=== PATIENT | female | born 1940 | race African-American/Black ===

== ENCOUNTER 2021-03-27 14:29 | Inpatient (IN) | payer OTHER ==
--- OUTSIDE RECORDS SUMMARY | 2021-03-27 14:31 | XMS REPORT | Continuity of Care Document ---
:1940 Author Organization [facility] t Address [address] [place] [address] Care Team Providers Name Role Phone OJ Attending Clinician Unavailable Problems This patient has no known problems. Allergies, Adverse Reactions, Alerts Allergy Allergy Status Severity Reaction(s) Onset Inactive Treating Comm ents Source Name Type Date Date Clinician Azithrom Adverse Active Info Not [facility] Medications Ordered Filled Start Stop Current Ordering Indication Dosage Frequency Signature Comments Components Source Medication Medication Date Date Medication? Clinician (SIG) Name Name Kiki Swanson Yes [place] [address] [facility] ne ne 04-16 applicatio [facility] Aceton[facility] Ac[facility]ide [facility]: n to Mem [facility]ria 00 affected l area Outpat[facility] ent Clinics Ondansetron Ondansetron Yes Na [place] TAKE [address] [facility] HCl HCl TABLET BY [facility] EVERY 8 l HOURS Outpati NEEDED FOR ent NAUSEA AND Clinics VOMITING Fluticasone Fluticasone Yes [place] [address] [facility] Propionate Propionate in each [facility] Nexium Nexium Yes [place] [address] [facility] Pravastatin Pravastatin Yes [place] TAKE [address] [facility] Sodium Sodium TABLET BY [facility] EVERY DAY l [facility] Clinics Gleevec Gleevec Yes [place] [address] [facility] and a [facility] large l glass of Outpati water ent Clinics Esomeprazol Esomeprazol Yes [place] TAKE ONE [facility] e Magnesium e Magnesium CAPSULE BY [facility] DAILY l [facility] Pravastatin Pravastatin Yes [place] TAKE [address] [facility] Sodium Sodium TABLET BY [facility] EVERY DAY l [facility] Esomeprazol Esomeprazol Yes [place] TAKE ONE [facility] e Magnesium e Magnesium CAPSULE BY [facility] EVERY DAY l [facility] Loratadine Loratadine Yes Na [place] [address] [facility] Indapamide Indapamide Yes Na [place] TAKE [address] [facility] TABLET BY [facility] EVERY l MORNING [facility] Lisinopril Lisinopril Yes Na [place] [address] [facility] Lotrel Lotrel Yes Na [place] TAKE ONE [facility] CAPSULE BY [facility] EVERY DAY l [facility] Indapamide Indapamide Yes Na [place] TAKE [address] [facility] TABLET BY [facility] EVERY l MORNING [facility] Amlodipine Amlodipine Yes Na [place] TAKE [address] [facility] Besy-Benaze Besy-Benaze CAPSULE BY [facility] pril HCl pril HCl MOUTH Memori a EVERY DAY l [facility] Pravastatin Pravastatin Yes Na [place] TAKE [address] [facility] Sodium Sodium TABLET BY [facility] EVERY l EVENING [facility] Esomeprazol Esomeprazol Yes Na [place] TAKE [address] [facility] e Magnesium e Magnesium CAPSULE BY [facility] EVERY DAY l [facility] Procedures This patient has no known procedures. Encounters Start End Encounter Admission Attending Care Care Encounter Source Date/Time Date/Time Type Type Clinicians Facility Department ID 2021-03-25 2021-03-25 [facility] [id number] 2021-03-24 2021-03-24 [facility] [id number] [facility] 2021-03-23 2021-03-23 [facility] [id number] [facility] 2021-03-23 2021-03-23 ambulatory [facility] [id number] [facility] 2021-03-22 2021-03-22 ambulatory [facility] [id number] [facility] 2021-03-10 2021-03-10 ambulatory [facility] [id number] [facility] 2021-03-10 2021-03-10 ambulatory [facility] [id number] [facility] 2021-02-22 2021-02-22 ambulatory [facility] [id number] [facility] 2020-12-23 2020-12-23 Outpatient [facility] [id number] [facility] 2020-11-25 2020-11-25 Outpatient [facility] [id number] [facility] 2020-11-22 2020-11-22 Out[facility] [id number] [facility] 2020-10-04 2020-10-04 [id number] [place] [facility] 00:00:[address] JJ [address] 2020-10-04 2020-10-04 [facility] [id number] [place] 00:00:00 00:00:00 JJ [address] 2020-09-09 2020-09-09 Outpatient [facility] [id number] [facility] 2020-08-06 2020-08-06 Outpatient [facility] [id number] [facility] 2020-06-18 2020-06-18 Outpatient [facility] [id number] [facility] 2020-05-10 2020-05-10 Outpatient [facility] [id number] [facility] 2020-04-20 2020-04-20 Outpatient TEEDCNadir, [facility] [id number] [place] 00:00:00 00:00:00 MAEN [address] 2020-04-20 2020-04-20 Outpatient TEEDCNadir, [facility] [id number] [place] 00:00:00 00:00:00 MAEN [address] 2020-03-25 2020-03-25 Outpatient TEEDCM, [facility] [id number] [place] 00:00:00 00:00:00 MAEN [address] 2019-12-11 2019-12-11 Outpatient [facility] [id number] [facility] 2019-10-14 2019-10-14 Outpatient OJ, [facility] [id number] [place] 00:00:00 00:00:00 MAEN [address] 2019-10-07 2019-10-07 [facility] [id number] 11:00:00 11:00:00 [place] [address] [facility] - Drive [facility] Medicine Outpati ent Clinics 2019-04-23 2019-04-23 [facility] [id number] 08:00:00 08:00:00 [place] [address] Luke s - Drive [facility] Family Medicine l Medicine Outpati ent Clinics 2019-04-21 2019-04-21 [facility] [id number] 08:39:00 08:39:00 [place] [address] Luke s - Drive [facility] Medicine l Medicine Outpati ent Clinics 2019-04-17 2019-04-17 Outpatient OJ Lia [facility] [id number] [place] 00:00:00 00:00:00 [address] [facility] 2019-04-16 2019-04-16 [facility] [id number] 08:15:00 08:15:00 t [employer] [facility] Medicine Outpati ent Clinics 2019-04-14 2019-04-14 [facility] [id number] 14:29:00 14:29:00 t [employer] [facility] Medicine Outpati ent Clinics 2019-04-08 2019-04-08 [facility] [id number] [address] 11:00:00 11:00:00 t [employer] [facility] Medicine Outpati ent Clinics 2019-02-28 2019-02-28 [facility] [id number] 09:00:00 09:00:00 t [employer] [facility] Medicine Outpati ent Clinics 2018-11-15 2018-11-15 [facility] [id number] 10[facility]51:00 10:51:00 t [employer] [facility] Medicine Outpati ent Clinics 2018-08-27 2018-08-27 [facility] [id number] 13:40:00 13:40:00 t [employer] [facility] Medicine Outpati ent Clinics 2018-03-06 2018-03-06 [facility] [id number] [facility] 11:53:00 11:53:00 t [employer] [facility] Medicine Outpati ent Clinics Results This patient has no known results.
[2021-03-27 15:14] LABS: Absolute Lymphocytes (CBC) 0.5 K/uL (0.7-4.9); Hematocrit 12.5 % (36.0-45.0); Lymphocytes % 10.6 % (15.3-44.8); MPV 7.1 fL (7.6-11.3); RBC Red Blood Cell Count 1.42 M/uL (3.86-4.86)
[2021-03-27 15:21] LABS: Protime INR 1.02
[2021-03-27 15:31] LABS: Albumin 2.7 g/dL (3.4-5.0); Bilirubin Direct 0.1 mg/dL (0-0.2); Bilirubin Total 0.2 mg/dL (0.2-1.0); CKMB Creatine Kinase MB 2.9 ng/mL (1.0-3.6); Magnesium 1.9 mg/dL (1.8-2.4); Potassium 3.4 mmol/L (3.5-5.1); Protein, Total 5.6 g/dL (6.4-8.2); Troponin (Emerg Dept Use Only) 0.03 ng/mL (0.0-0.045)
--- NOTE | 2021-03-27 15:55 | RAD REPORT ---
EXAM DESCRIPTION: CT - Head Brain Wo Cont - 03/27/2021 3:41 pm CLINICAL HISTORY: Syncope COMPARISON: None TECHNIQUE: Computed axial tomography of the head was obtained. IV contrast was not requested. All CT scans are performed using dose optimization technique as appropriate and may include automated exposure control or mA/KV adjustment according to patient size. FINDINGS: An intracranial bleed is not seen . The ventricles are normal in caliber. No extra-axial fluid collection is noted. A small bony/ calcific densities extend off of the medial aspect of the left temporal bone which may represent osteomas. Moderate sphenoid sinusitis IMPRESSION: No acute intracranial abnormality is seen. If patient's symptoms persist MRI of the bra in would be recommended.
--- NOTE | 2021-03-27 16:06 | RAD REPORT ---
EXAM DESCRIPTION: CTSpine Lumbar Wo Con03/27/2021 3:56 pm CLINICAL HISTORY: Back injury with back pain status post fall COMPARISON: None TECHNIQUE: Computed axial tomography lumbar spine was obtained with coronal and sagittal reconstruct ion. All CT scans are performed using dose optimization technique as appropriate and may include automated exposure control or mA/KV adjustment according to patient size. FINDINGS: No fracture is seen. No dislocation is noted. No high-grade central/foraminal stenosis visualized. Images of the lower chest demonstrate calcified lymph nodes within posterior mediastinum. 1 centimeter chronic sclerosis right sacrum is benign IMPRESSION: A lumbar fracture is not visualized If patient continues have symptoms to suggest spinal canal pathology MRI would be recommended
--- NOTE | 2021-03-27 16:11 | RAD REPORT ---
EXAM DESCRIPTION: Mikael Single View03/27/2021 3:57 pm CLINICAL HISTORY: Congestion COMPARISON: 2008 FINDINGS: Calcified lung granulomas, calcified hilar and calcified mediastinal lymph nodes. Calcified pleural plaques are present. Lungs appear clear of acute infiltrate. Heart is normal size
--- NOTE | 2021-03-27 16:38 | RAD REPORT ---
EXAM DESCRIPTION: RAD - Knee Right 3 View - 03/27/2021 3:57 pm CLINICAL HISTORY: Right knee pain status post injury FINDINGS: The exam is somewhat limited as the patient could not extend her knee. Cortical irregularity involves the lateral tibial plateau. Most likely this is not significant as the re does not appear to be a significant joint effusion. Bones are osteoporotic. No dislocation. If patient continues have symptoms to suggest an occult fracture, ligamentous or meniscal injury MRI would be recommended
[2021-03-27] MEDS ORDERED: PANTOPRAZOLE 40 MG INJ ONE (17:35)
[2021-03-27] MEDS ORDERED: NA CHLORIDE 0.9% 250 ML ONE ×3 (17:35→21:28)
[2021-03-27] MEDS ORDERED: NS 0.9% VIAL 10 ML ONE (17:35)
[2021-03-27 18:35] LABS: Urine Appearance CLOUDY (Clear); Urine Bilirubin NEGATIVE (Negative); Urine Blood NEGATIVE (Negative); Urine Color YELLOW (Yellow); Urine Glucose NEGATIVE (Negative); Urine Protein NEGATIVE (Negative)
[2021-03-27] MEDS ORDERED: ACETAMINOPHEN 500 MG TAB ONE (18:42)
[2021-03-27 18:46] LABS: Urine Bacteria <20 /HPF (<20); Urine RBC <5 /HPF (NONE SEEN)
[2021-03-27 18:47] LABS: Urine Amorphous Sediment 2+ /HPF (NONE SEEN)
--- NOTE | 2021-03-27 18:53 | ER ---
Nurse's Notes [facility] Naima Name: Jess Herrera Age: 80 yrs Sex: Female : 1940 Arrival Date: 03/27/2021 Time: 14:30 Bed 6 Private MD: Diagnosis: GI Bleed/ Gastrointestinal hemorrhage, unspecified;Anemia, unspecified;SARS-associated coronavirus as the cause of diseases classified elsewhere;Acute kidney failure, unspecified Presentation: 03/27 14:42 Chief complaint: Patient states: Dizziness and Fall: Pt reports dizziness upon standing eo2 while at home today, fell on her buttocks, reports b/l knee pain, and pain to the middle of her buttocks. Pt denies LOC, denies head injury. Coronavirus screen: Vaccine status: Patient reports receiving the 2nd dose of the covid vaccine. Client denies travel out of the [place] in the last 14 days. At this time, the client does not indicate any symptoms associated with coronavirus-19. Ebola Screen: Patient negative for fever greater than or equal to 101.5 degrees Fahrenheit, and additional compatible Ebola Virus Disease symptoms Patient denies exposure to infectious person. Patient denies travel to an Ebola-affected area in the 21 days before illness onset. No symptoms or risks identified at this time. Initial Sepsis Screen: Does the patient meet any 2 criteria? No. Patient's initial sepsis screen is negative. Does the patient have a suspected source of infection? No. Patient's initial sepsis screen is negative. Risk Assessment: Do you want to hurt yourself or someone else? Patient reports no desire to harm self or others. Onset of symptoms is unknown. 14:42 Method Of Arrival: EMS: [facility] eo2 14:42 Acuity: MARK 2 eo2 Triage Assessment: 14:46 General: Appears in no apparent distress. Behavior is calm, cooperative. Pain: eo2 Complains of pain in buttocks-middle. Historical: - Allergies: 14:46 No Known Allergies; eo2 - Home Meds: 17:27 indapamide 1.25 mg oral tab [Active]; lisinopril 40 mg Oral tab [Active]; eo2 amlodipine-benazepril 10-20 mg oral cap [Active]; pravastatin 40 mg oral tab [Active]; imatinib 400 mg oral tab [Active]; ondansetron 8 mg oral TbDi [Active]; esomeprazole magnesium 20 mg oral TbEC [Active]; promethazine 25 mg Oral tab [Active]; - PMHx: 14:46 Hypertensive disorder; GI Tumor; GERD; High cholesterol; eo2 - Immunization history:: Adult Immunizations up to date, Client reports receiving the 2nd dose of the Covid vaccine. - Social history:: Smoking status: Patient denies any tobacco usage or history of. Patient/guardian denies using alcohol, street drugs, The patient lives with family. - Family history:: not pertinent. Screenin:04 Abuse screen: Denies threats or abuse. Denies injuries from another. Nutritional eo2 screening: No deficits noted. Tuberculosis screening: No symptoms or risk factors identified. Fall Risk Fall in past 12 months (25 points). Ambulatory Aid- None/Bed Rest/Nurse Assist (0 pts). Assessment: 03:15 Reassessment: blood transfuion started. mk 15:01 General: Appears in no apparent distress. uncomfortable, Behavior is calm, cooperative. eo2 Pain: Complains of pain in mid buttocks and b/l knees. Neuro: Level of Consciousness is awake, alert, obeys commands, Oriented to person, place, time, situation, Reports dizziness, Denies headache. Cardiovascular: Denies chest pain, shortness of breath, Heart tones S1 S2 Capillary refill < 3 seconds. Respiratory: Reports cough that is chronic Breath sounds are clear bilaterally. Denies shortness of breath. GI: Bowel sounds present X 4 quads. Reports nausea. Musculoskeletal: Circulation, motion, and sensation intact. Capillary refill < 3 seconds, Range of motion: limited in RLE Reports pain in b/l knees, and buttocks, denies hip pain. 17:12 Reassessment: Straight cath to obtain urine. eo2 17:17 Reassessment: two more attempts by this RN to obtain a second PIV, unsuccessful, eo2 another RN to attempt. 17:50 Reassessment: pt's daughter- Karen Smith ([phone]), states she's POA, wants eo2 provider to call her and wants to know when pt gets transferred, pt agrees to info being shared with daughter, Dr. Galeana made aware. 17:53 Reassessment: Pt moaning in pain, received order for tylenol 1000mg PO once from Dr. alfonzo Galeana. 19:00 Reassessment: 1st unit PRBC started now. Respiratory: Airway is patent Respiratory ss effort is even, unlabored, Respiratory pattern is regular, symmetrical. Derm: Skin is pink, warm \\T\\ dry. normal. 19:20 General: Appears uncomfortable. Pain: Denies pain. Neuro: Level of Consciousness is mk awake, alert, obeys commands, Oriented to person, place, time, situation. Cardiovascular: Denies chest pain, shortness of breath, Heart tones S1 S2 Capillary refill < 3 seconds Clubbing of nail beds is absent JVD is absent Patient's skin is warm and dry. Rhythm is regular. Respiratory: Reports shortness of breath on exertion cough that is Airway is patent Trachea midline Respiratory effort is even, unlabored, Respiratory pattern is regular, symmetrical, Breath sounds are clear. GI: Abdomen is flat, non-distended, Bowel sounds present X 4 quads. : Urine is clear. Derm: Skin is intact, is healthy with good turgor, Skin is pale. Musculoskeletal: Circulation, motion, and sensation intact. Capillary refill < 3 seconds, Range of motion: intact in all extremities. 20:05 Reassessment: Patient appears in no apparent distress at this time. No changes from previously documented assessment. Patient and/or family updated on plan of care and expected duration. Pain level reassessed. Patient states symptoms have improved. 21:05 Reassessment: No changes from previously documented assessment. Patient and/or family mk updated on plan of care and expected duration. Pain level reassessed. Patient states symptoms have improved. 21:35 Reassessment: blood transfusion started . 22:05 Reassessment: No changes from previously documented assessment. Patient and/or family mk updated on plan of care and expected duration. Pain level reassessed. Patient states symptoms have improved. 23:05 Reassessment: Patient appears in no apparent distress at this time. No changes from mk previously documented assessment. Patient and/or family updated on plan of care and expected duration. Pain level reassessed. Patient states symptoms have improved. 03/28 00:01 Reassessment: Patient appears in no apparent distress at this time. No changes from previously documented assessment. Patient and/or family updated on plan of care and expected duration. Pain level reassessed. 00:31 Reassessment: blood transfusion started. 01:01 Reassessment: Patient appears in no apparent distress at this time. No changes from mk previously documented assessment. Patient and/or family updated on plan of care and expected duration. Pain level reassessed. Patient states symptoms have improved. 02:01 Reassessment: Patient appears in no apparent distress at this time. No changes from mk previously documented assessment. Patient and/or family updated on plan of care and expected duration. Pain level reassessed. 03:01 Reassessment: Patient appears in no apparent distress at this time. No changes from mk previously documented assessment. Patient and/or family updated on plan of care and expected duration. Pain level reassessed. 04:00 Reassessment: Patient appears in no apparent distress at this time. No changes from mk previously documented assessment. Patient and/or family updated on plan of care and expected duration. Pain level reassessed. Patient states symptoms have improved. 04:04 Reassessment:. 05:00 Reassessment: Patient appears in no apparent distress at this time. No changes from mk previously documented assessment. Patient and/or family updated on plan of care and expected duration. Pain level reassessed. 06:00 Reassessment: Patient appears in no apparent distress at this time. No changes from mk previously documented assessment. Patient and/or family updated on plan of care and expected duration. Pain level reassessed. 08:18 Reassessment: Patient appears in no apparent distress at this time. Patient and/or vg1 family updated on plan of care and expected duration. Pain level reassessed. Patient is alert, oriented x 3, equal unlabored respirations, skin warm/dry/pink. 09:09 Reassessment: Patient appears in no apparent distress at this time. No changes from vg1 previously documented assessment. Patient and/or family updated on plan of care and expected duration. Pain level reassessed. Patient is alert, oriented x 3, equal unlabored respirations, skin warm/dry/pink. Patient denies pain at this time. 10:30 Reassessment: Patient appears in no apparent distress at this time. No changes from vg1 previously documented assessment. 11:47 Reassessment: Patient appears in no apparent distress at this time. No changes from vg1 previously documented assessment. Patient and/or family updated on plan of care and expected duration. Pain level reassessed. Patient is alert, oriented x 3, equal unlabored respirations, skin warm/dry/pink. Patient denies pain at this time. 13:00 Reassessment: Patient appears in no apparent distress at this time. Patient and/or vg1 family updated on plan of care and expected duration. Pain level reassessed. Patient is alert, oriented x 3, equal unlabored respirations, skin warm/dry/pink. 14:00 Reassessment: Patient appears in no apparent distress at this time. No changes from vg1 previously documented assessment. Patient and/or family updated on plan of care and expected duration. Pain level reassessed. Patient is alert, oriented x 3, equal unlabored respirations, skin warm/dry/pink. 15:09 Reassessment: Patient appears in no apparent distress at this time. No changes from vg1 previously documented assessment. Patient and/or family updated on plan of care and expected duration. Pain level reassessed. Patient is alert, oriented x 3, equal unlabored respirations, skin warm/dry/pink. Vital Signs: 03/27 14:42 BP 112 / 46; Pulse 93; Resp 17; Temp 98.9; Pulse Ox 96% ; Weight 62.6 kg; Height 5 ft. eo2 1 in. (154.94 cm); Pain 7/10; 15:00 BP 108 / 45; Pulse 92; Resp 17; Pulse Ox 95% ; eo2 16:00 BP 106 / 44; Pulse 93; Resp 14; Pulse Ox 100% ; Pain 6/10; eo2 17:00 BP 115 / 45; Pulse 94; Resp 20; Pulse Ox 100% ; eo2 18:00 BP 124 / 52; Pulse 93; Resp 19; Pulse Ox 100% on R/A; eo2 18:38 BP 127 / 52 LA; Pulse 91; Resp 16; Temp 99.0(T); Pulse Ox 100% on R/A; eo2 19:08 BP 109 / 52; Pulse 90; Resp 17; Pulse Ox 100% on R/A; mk 20:08 BP 91 / 56; Pulse 91; Resp 18; Pulse Ox 98% on R/A; mk 21:10 BP 105 / 69; Pulse 81; Resp 18; Pulse Ox 100% on R/A; mk 22:05 BP 105 / 58; Pulse 84; Resp 18; Pulse Ox 98% on R/A; mk 23:05 BP 90 / 66; Pulse 84; Resp 18; Pulse Ox 98% on R/A; mk 03/28 00:01 BP 102 / 56; Pulse 81; Resp 18; Pulse Ox 100% on R/A; mk 01:01 BP 102 / 58; Pulse 78; Resp 18; Pulse Ox 100% on R/A; mk 02:01 BP 97 / 48; Pulse 78; Resp 18; Pulse Ox 100% on R/A; mk 03:15 BP 110 / 58; Pulse 77; Resp 17; Pulse Ox 100% on R/A; mk 04:00 BP 105 / 57; Pulse 71; Resp 18; Temp 97.1; Pulse Ox 97% on R/A; mk 05:00 BP 105 / 57; Pulse 71; Resp 16; Temp 97.4; Pulse Ox 97% on R/A; mk 06:00 BP 114 / 89; Pulse 77; Resp 18; Temp 97.4; Pulse Ox 98% on R/A; mk 08:17 BP 117 / 65; Pulse 85; Resp 21; Temp 97.9; Pulse Ox 99% ; vg1 09:00 BP 119 / 50; Pulse 85; Resp 24; Pulse Ox 96% on R/A; vg1 10:00 BP 118 / 54; Pulse 87; Resp 18; Pulse Ox 97% ; vg1 11:00 BP 108 / 58; Pulse 88; Resp 18; Pulse Ox 97% ; vg1 13:18 BP 109 / 50; Pulse 87; Resp 18; Pulse Ox 96% ; jd3 14:00 BP 104 / 58; Pulse 90; Resp 16; Pulse Ox 97% on R/A; vg1 15:00 BP 107 / 57; Pulse 92; Resp 22; Pulse Ox 99% ; vg1 03/27 14:42 Body Mass Index 26.07 (62.60 kg, 154.94 cm) eo2 Keshav Coma Score: 03/27 19:08 Eye Response: spontaneous(4). Verbal Response: oriented(5). Motor Response: obeys mk commands(6). Total: 15. 20:08 Eye Response: spontaneous(4). Verbal Response: oriented(5). Motor Response: obeys mk commands(6). Total: 15. 21:10 Eye Response: spontaneous(4). Verbal Response: oriented(5). Motor Response: obeys mk commands(6). Total: 15. 22:05 Eye Response: spontaneous(4). Verbal Response: oriented(5). Motor Response: obeys mk commands(6). Total: 15. 03/28 00:01 Eye Response: spontaneous(4). Verbal Response: oriented(5). Motor Response: obeys mk commands(6). Total: 15. 01:01 Eye Response: spontaneous(4). Verbal Response: oriented(5). Motor Response: obeys mk commands(6). Total: 15. 02:01 Eye Response: spontaneous(4). Verbal Response: oriented(5). Motor Response: obeys mk commands(6). Total: 15. 03:15 Eye Response: spontaneous(4). Verbal Response: oriented(5). Motor Response: obeys mk commands(6). Total: 15. 04:00 Eye Response: spontaneous(4). Verbal Response: oriented(5). Motor Response: obeys mk commands(6). Total: 15. 05:00 Eye Response: spontaneous(4). Verbal Response: oriented(5). Motor Response: obeys mk commands(6). Total: 15. 06:00 Eye Response: spontaneous(4). Verbal Response: oriented(5). Motor Response: obeys mk commands(6). Total: 15. ED Course: 03/27 14:30 Patient arrived in ED. am2 14:33 Jose Boswell MD is Attending Physician. ma2 14:42 Josefina Carballo RN is Primary Nurse. eo2 14:46 Triage completed. eo2 14:46 Arm band placed on. eo2 15:00 Basic Metabolic Panel Sent. eo2 15:00 CBC with Automated Diff Sent. eo2 15:00 Basic Metabolic Panel Sent. eo2 15:01 CBC with Diff Sent. eo2 15:41 CT Head Brain wo Cont In Process Unspecified. EDMS 15:56 CT Lumbar Spine Wo Con In Process Unspecified. EDMS 15:57 Knee Right 3 View XRAY In Process Unspecified. EDMS 15:57 Chest Single View XRAY In Process Unspecified. EDMS 16:08 Type and Screen Sent. ss 16:41 attempted to initiate a transfer with [facility] at the request of the patient/ per Marek petersen [facility] is at capacity and will have to decline the patient in transfer. 16:42 initiated a transfer with Emily from the [facility]. eb 17:08 T\\T\\S Sent. eo2 17:08 Type and Screen Sent. eo2 17:08 SARS-COV-2 RT PCR (Document "Date of Onset" if Symptomatic) Sent. eo2 17:10 per Emily/ Dr. Doran the hospitalist and Dr. Chan the GI concrete boom pump operator the patient eb requires and ICU bed with the current H\\T\\H. They suggest we transfuse the 4 units of blood recheck the blood in the A.M and then re initiate the transfer in the A.M/ patient is declined due to being at ICU capacity/. 17:30 Patient has correct armband on for positive identification. eo2 17:30 attempted to initiate a transfer with the [facility]/ Carlos Mckee all [facility] are on ICU saturation/ capacity. 17:30 No provider procedures requiring assistance completed. eo2 17:56 per Vonnie at the [facility] they will have to decline the eb patient in transfer at all campuses they are at ICU Saturation. 18:55 Inserted saline lock: 22 gauge in right antecubital area, using aseptic technique. ss 18:55 Inserted saline lock: 24 gauge in right antecubital area, using aseptic technique. ss ,using aseptic technique. Insertion by DAVID Velez. Protonix infusion switched to new IV site. 19:09 Primary Nurse role handed off by Josefina Carballo RN [facility] 19:15 Inserted saline lock: 22 gauge in right wrist, using aseptic technique. mk 19:24 Rosi Alcantar, BIPIN is Primary Nurse. mk 03/28 00:09 Attending Physician role handed off by Jose Boswell MD drew 00:09 Albino Mcneil MD is Attending Physician. drew 00:42 Hemoglobin Sent. tw5 04:07 called to re initiate transfer on patient. [facility], [facility], [facility] and [facility] [address] all on diversion. 07:28 Primary Nurse role handed off by Rosi Alcantar RN 07:30 Daina Broderick, RN is Primary Nurse. vg1 07:40 CT Abd/Pelvis - Without Contrast In Process Unspecified. EDMS 10:54 Mane Yu PA is PHCP. jr8 10:54 Dion Pascual MD is Hospitalizing Provider. jr8 14:28 pts daughter, . bd 20:06 Report given to BIPIN Thakur. vg1 Administered Medications: 03/27 15:21 Not Given (Physician Discretion): NS 0.9% 1000 ml IV at 1 bolus Per protocol; 1000 mL eo2 bolus 17:41 Drug: Pantoprazole 40 mg Route: IVP; Site: left antecubital; eo2 19:20 Follow up: Response: No adverse reaction ss 17:41 Drug: Pantoprazole 8 mg/hr Route: IV; Rate: 25 ml/hr; Site: left antecubital; eo2 18:47 Drug: Tylenol 1000 mg Route: PO; eo2 03/28 08:15 Drug: Zosyn (piperacillin-tazobactam) 2.25 grams Route: IVPB; Infused Over: 60 mins; vg1 Site: right wrist; 09:27 Follow up: IV Status: Completed infusion; IV Intake: 100ml vg1 Intake: 09:27 IV: 100ml; Total: 100ml. vg1 Outcome: 03/27 18:53 ER care complete, transfer ordered by . ma2 03/28 10:59 Decision to Hospitalize by Provider. jr8 03/29 18:12 Patient left the ED. jh6 Signatures: Dispatcher [employer] EDMS Gretel Comer Corey, MD MD cha Smirch, Shelby, RN RN Mane Yu PA PA jr8 Dorie Whalen amRosie Ramirez [facility] Jacky Liriano RN RN Jose Conway MD MD nvTing Nino Victoria RN RN 1 Misa Pinto [facility] Willa Meier [facility] Tracey Levin RN RN 6 Josefina Carballo RN RN eo2 Rosi Alcantar RN RN mk Corrections: (The following items were deleted from the chart) 03/27 15:00 14:42 Chief complaint: Patient states: FALL: Pt reports dizziness upon standing while eo2 at home today, fell on her buttocks, reports b/l knee pain, and pain to the middle of her buttocks. Pt denies LOC, denies head injury. eo2 17:12 15:01 Respiratory: Breath sounds are clear bilaterally. Denies shortness of breath eo2 eo2 19:23 19:00 Inserted saline lock: 22 gauge in right antecubital area, using aseptic ss technique. dh3 03/28 04:01 04:00 Reassessment: No changes from previously documented assessment. Patient and/or mk family updated on plan of care and expected duration. Pain level reassessed. Patient is alert, oriented x 3, equal unlabored respirations, skin warm/dry/pink. 04:03/27 20:05 Reassessment: No changes from previously documented assessment. Patient mk and/or family updated on plan of care and expected duration. Pain level reassessed. Patient is alert, oriented x 3, equal unlabored respirations, skin warm/dry/pink.
--- NOTE | 2021-03-27 18:54 | EDPHYS ---
Physician Documentation [facility] Name: [facility] Age: 80 yrs Sex: Female : 1940 Arrival Date: 03/27/2021 Time: 14:30 Bed 6 Private MD: DAVID Physician Albino Mcneil HPI: 03/27 14:46 This 80 yrs old Black Female presents to ER via EMS with complaints of Lightheadedness. ma2 14:46 Onset: The symptoms/episode began/occurred gradually, 1 day(s) ago. Associated signs ma2 and symptoms: Pertinent negatives: ataxia, combativeness, diaphoresis, head injury, , seizure, tingling. Severity of symptoms: At their worst the symptoms were mild in the emergency department the symptoms are unchanged. The patient has experienced similar episodes in the past. Patient here with episode of near syncope, she has been lightheaded for few days, and was about to pass out today however went down and hit the floor while sitting, so now she has lower back pain, and right knee pain, she said that she did not hit her head and she has been awake all the time. No chest pain or actual syncope. Historical: - Allergies: 14:46 No Known Allergies; eo2 - Home Meds: 17:27 indapamide 1.25 mg oral tab [Active]; lisinopril 40 mg Oral tab [Active]; eo2 amlodipine-benazepril 10-20 mg oral cap [Active]; pravastatin 40 mg oral tab [Active]; imatinib 400 mg oral tab [Active]; ondansetron 8 mg oral TbDi [Active]; esomeprazole magnesium 20 mg oral TbEC [Active]; promethazine 25 mg Oral tab [Active]; - PMHx: 14:46 Hypertensive disorder; GI Tumor; GERD; High cholesterol; eo2 - Immunization history:: Adult Immunizations up to date, Client reports receiving the 2nd dose of the Covid vaccine. - Social history:: Smoking status: Patient denies any tobacco usage or history of. Patient/guardian denies using alcohol, street drugs, The patient lives with family. - Family history:: not pertinent. ROS: 14:46 Constitutional: Negative for fever, chills, and weight loss. ma2 14:46 All other systems are negative. Exam: 14:46 Constitutional: This is a well developed, well nourished patient who is awake, alert, ma2 and in no acute distress. Head/Face: Normocephalic, atraumatic. Eyes: Pupils equal round and reactive to light, extra-ocular motions intact. Lids and lashes normal. Conjunctiva and sclera are non-icteric and not injected. Cornea within normal limits. Periorbital areas with no swelling, redness, or edema. ENT: Nares patent. No nasal discharge, no septal abnormalities noted. Tympanic membranes are normal and external auditory canals are clear. Oropharynx with no redness, swelling, or masses, exudates, or evidence of obstruction, uvula midline. Mucous membranes moist. Neck: Trachea midline, no thyromegaly or masses palpated, and no cervical lymphadenopathy. Supple, full range of motion without nuchal rigidity, or vertebral point tenderness. No Meningismus. Chest/axilla: Normal chest wall appearance and motion. Nontender with no deformity. No lesions are appreciated. Cardiovascular: Regular rate and rhythm with a normal S1 and S2. No gallops, murmurs, or rubs. Normal PMI, no JVD. No pulse deficits. Respiratory: Lungs have equal breath sounds bilaterally, clear to auscultation and percussion. No rales, rhonchi or wheezes noted. No increased work of breathing, no retractions or nasal flaring. Abdomen/GI: Soft, non-tender, with normal bowel sounds. No distension or tympany. No guarding or rebound. No evidence of tenderness throughout. Skin: Warm, dry with normal turgor. Normal color with no rashes, no lesions, and no evidence of cellulitis. MS/ Extremity: Pulses equal, no cyanosis. Neurovascular intact. Full, normal range of motion. Neuro: Awake and alert, GCS 15, oriented to person, place, time, and situation. Cranial nerves II-XII grossly intact. Motor strength 5/5 in all extremities. Sensory grossly intact. Cerebellar exam normal. Normal gait. 03/28 07:38 Abdomen/GI: Inspection: distension, that is mild, Bowel sounds: normal, Palpation: mild drew abdominal tenderness, in all quadrants, Rectal exam: rectal tone normal, Stool: grossly bloody, guaiac positive, hemorrhoid(s), are not appreciated, mass, is not appreciated, swelling, is not appreciated, tenderness, is not appreciated, Liver: is firm, Hernia: not appreciated. Vital Signs: 03/27 14:42 BP 112 / 46; Pulse 93; Resp 17; Temp 98.9; Pulse Ox 96% ; Weight 62.6 kg; Height 5 ft. eo2 1 in. (154.94 cm); Pain 7/10; 15:00 BP 108 / 45; Pulse 92; Resp 17; Pulse Ox 95% ; eo2 16:00 BP 106 / 44; Pulse 93; Resp 14; Pulse Ox 100% ; Pain 6/10; eo2 17:00 BP 115 / 45; Pulse 94; Resp 20; Pulse Ox 100% ; eo2 18:00 BP 124 / 52; Pulse 93; Resp 19; Pulse Ox 100% on R/A; eo2 18:38 BP 127 / 52 LA; Pulse 91; Resp 16; Temp 99.0(T); Pulse Ox 100% on R/A; eo2 19:08 BP 109 / 52; Pulse 90; Resp 17; Pulse Ox 100% on R/A; mk 20:08 BP 91 / 56; Pulse 91; Resp 18; Pulse Ox 98% on R/A; mk 21:10 BP 105 / 69; Pulse 81; Resp 18; Pulse Ox 100% on R/A; mk 22:05 BP 105 / 58; Pulse 84; Resp 18; Pulse Ox 98% on R/A; mk 23:05 BP 90 / 66; Pulse 84; Resp 18; Pulse Ox 98% on R/A; mk 03/28 00:01 BP 102 / 56; Pulse 81; Resp 18; Pulse Ox 100% on R/A; mk 01:01 BP 102 / 58; Pulse 78; Resp 18; Pulse Ox 100% on R/A; mk 02:01 BP 97 / 48; Pulse 78; Resp 18; Pulse Ox 100% on R/A; mk 03:15 BP 110 / 58; Pulse 77; Resp 17; Pulse Ox 100% on R/A; mk 04:00 BP 105 / 57; Pulse 71; Resp 18; Temp 97.1; Pulse Ox 97% on R/A; mk 05:00 BP 105 / 57; Pulse 71; Resp 16; Temp 97.4; Pulse Ox 97% on R/A; mk 06:00 BP 114 / 89; Pulse 77; Resp 18; Temp 97.4; Pulse Ox 98% on R/A; mk 08:17 BP 117 / 65; Pulse 85; Resp 21; Temp 97.9; Pulse Ox 99% ; vg1 09:00 BP 119 / 50; Pulse 85; Resp 24; Pulse Ox 96% on R/A; vg1 10:00 BP 118 / 54; Pulse 87; Resp 18; Pulse Ox 97% ; vg1 11:00 BP 108 / 58; Pulse 88; Resp 18; Pulse Ox 97% ; vg1 13:18 BP 109 / 50; Pulse 87; Resp 18; Pulse Ox 96% ; jd3 14:00 BP 104 / 58; Pulse 90; Resp 16; Pulse Ox 97% on R/A; vg1 15:00 BP 107 / 57; Pulse 92; Resp 22; Pulse Ox 99% ; vg1 03/27 14:42 Body Mass Index 26.07 (62.60 kg, 154.94 cm) eo2 Keshav Coma Score: 03/27 19:08 Eye Response: spontaneous(4). Verbal Response: oriented(5). Motor Response: obeys mk commands(6). Total: 15. 20:08 Eye Response: spontaneous(4). Verbal Response: oriented(5). Motor Response: obeys mk commands(6). Total: 15. 21:10 Eye Response: spontaneous(4). Verbal Response: oriented(5). Motor Response: obeys mk commands(6). Total: 15. 22:05 Eye Response: spontaneous(4). Verbal Response: oriented(5). Motor Response: obeys mk commands(6). Total: 15. /10 00:01 Eye Response: spontaneous(4). Verbal Response: oriented(5). Motor Response: obeys mk commands(6). Total: 15. 01:01 Eye Response: spontaneous(4). Verbal Response: oriented(5). Motor Response: obeys mk commands(6). Total: 15. 02:01 Eye Response: spontaneous(4). Verbal Response: oriented(5). Motor Response: obeys mk commands(6). Total: 15. 03:15 Eye Response: spontaneous(4). Verbal Response: oriented(5). Motor Response: obeys mk commands(6). Total: 15. 04:00 Eye Response: spontaneous(4). Verbal Response: oriented(5). Motor Response: obeys mk commands(6). Total: 15. 05:00 Eye Response: spontaneous(4). Verbal Response: oriented(5). Motor Response: obeys mk commands(6). Total: 15. 06:00 Eye Response: spontaneous(4). Verbal Response: oriented(5). Motor Response: obeys mk commands(6). Total: 15. MDM: 03/27 14:39 Patient medically screened. [facility] 14:46 Differential diagnosis: Back pain, right knee contusion versus fracture, will do [facility] work-up for near syncope, patient states she does not want to be admitted to the hospital today. She had a negative COVID test yesterday. 16:55 Data reviewed: vital signs, nurses notes. Counseling: I had a detailed discussion with [facility] the patient and/or guardian regarding: the historical points, exam findings, and any diagnostic results supporting the discharge/admit diagnosis, the presence of at least one elevated blood pressure reading (>120/80) during this emergency department visit, the need for outpatient follow up. 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 Patient will get 4 units of packed RBC blood transfusion, blood pressure is within normal limits, patient needs GI evaluation, no GI services available in our hospital with transfer for higher level of care, emergently. As far as trauma goes CT lumbar spine unremarkable, x-ray of right knee does not show fracture, although the occult fracture is possible, she may need an MRI, however there is no tenderness on the right knee at this point. Patient is able to walk and bear weight on right knee.. Response to treatment: the patient's symptoms have markedly improved after treatment. 17:22 ED course: Patient tested positive for COVID. We initiated initiate transfer at [address] center contacted hospitalist in [facility] and they do not have ICU bed for COVID-positive patients. They recommend recheck H\\T\\H after 4 units of blood transfusion. And re initiate transfer for a telemetry bed, and they will be happy to accept at that time.. ED course: We will sign out this patient to next ED team to follow-up on H\\T\\H and re initiate transfer to [facility] team with telemetry bed.. 03/27 14:42 Order name: Basic Metabolic Panel [facility] 03/27 14:42 Order name: CBC with Diff ca2 03/27 14:42 Order name: CPK; Complete Time: 16:05 ca2 03/27 14:42 Order name: Ckmb; Complete Time: 16:05 ca2 03/27 14:42 Order name: Hepatic Function; Complete Time: 16:05 ca2 03/27 14:42 Order name: Lipase; Complete Time: 16:05 [facility] 03/27 14:42 Order name: Magnesium; Complete Time: 16:05 ca2 03/27 14:42 Order name: Protime (+inr); Complete Time: 16:05 ca2 03/27 14:42 Order name: Ptt, Activated; Complete Time: 16:05 [facility] 03/27 14:42 Order name: Troponin (emerg Dept Use Only); Complete Time: 16:05 [facility] 03/27 14:42 Order name: Basic Metabolic Panel; Complete Time: 16:05 EDMS 03/27 14:42 Order name: CBC with Automated Diff; Complete Time: 00:10 EDMS 03/27 15:35 Order name: T\\T\\S eb 03/27 15:36 Order name: Type and Screen; Complete Time: 06:41 EDMS 03/27 15:37 Order name: SARS-COV-2 RT PCR (Document "Date of Onset" if Symptomatic); Complete Time: eb 17:22 03/27 16:44 Order name: ABO/RH no charge; Complete Time: 16:52 EDMS 03/27 17:40 Order name: Packed RBCs (Additional Unit) EDMS 03/27 18:21 Order name: Urinalysis W/Microscopic; Complete Time: 18:53 EDMS 03/27 20:45 Order name: CBC Smear Scan; Complete Time: 00:10 EDMS 03/28 00:10 Order name: Hemoglobin; Complete Time: 07:03 drew 03/28 08:23 Order name: Hemoglobin; Complete Time: 10:47 vg1 03/28 15:03 Order name: Basic Metabolic Panel; Complete Time: 06:41 EDMS 03/28 15:03 Order name: CBC with Automated Diff; Complete Time: 06:41 EDMS 03/29 04:41 Order name: Protime (+INR); Complete Time: 06:41 EDMS 03/29 04:41 Order name: PTT, Activated Partial Thromb; Complete Time: 06:41 EDMS 03/29 04:42 Order name: CBC with Automated Diff; Complete Time: 06:41 EDMS 03/29 05:35 Order name: Comprehensive Metabolic Panel; Complete Time: 06:41 EDMS 03/29 05:35 Order name: Uric Acid; Complete Time: 06:41 EDMS 03/27 14:42 Order name: CT Head Brain wo Cont; Complete Time: 16:05 ma2 03/27 14:42 Order name: EKG; Complete Time: 14:43 ma2 03/27 14:42 Order name: Cardiac monitoring; Complete Time: 15:21 ma2 03/27 14:42 Order name: EKG - Nurse/Tech; Complete Time: 15:21 ma2 03/27 14:42 Order name: IV Saline Lock; Complete Time: 15:01 ma2 03/27 14:42 Order name: Labs collected and sent; Complete Time: 15:01 ma2 03/27 14:42 Order name: NPO; Complete Time: 15:01 ma2 03/27 14:42 Order name: O2 Per Protocol; Complete Time: 15:01 ma2 03/27 14:42 Order name: O2 Sat Monitoring; Complete Time: 15:01 ma2 03/27 14:42 Order name: Urine Dipstick-Ancillary (obtain specimen); Complete Time: 18:08 ma2 03/27 14:42 Order name: CT Lumbar Spine Wo Con; Complete Time: 16:06 ma2 03/27 14:42 Order name: Knee Right 3 View XRAY; Complete Time: 16:52 ma2 03/27 14:43 Order name: Chest Single View XRAY; Complete Time: 16:21 ma2 03/27 15:17 Order name: Transfuse: 4 units pRBC; Complete Time: 09:27 ma2 03/27 17:09 Order name: Straight Cath - Urine; Complete Time: 17:09 eo2 03/28 07:04 Order name: CT Abd/Pelvis - Without Contrast; Complete Time: 10:47 [facility] 03/28 07:52 Order name: EKG Electrocardiogram EDNY 03/28 15:03 Order name: CONS Physician Consult EDNY 03/29 05:35 Order name: Phosphorus; Complete Time: 06:41 EDMS 03/29 05:35 Order name: Magnesium; Complete Time: 06:41 EDMS Administered Medications: 15:21 Not Given (Physician Discretion): NS 0.9% 1000 ml IV at 1 bolus Per protocol; 1000 mL eo2 bolus 17:41 Drug: Pantoprazole 40 mg Route: IVP; Site: left antecubital; eo2 19:20 Follow up: Response: No adverse reaction ss 17:41 Drug: Pantoprazole 8 mg/hr Route: IV; Rate: 25 ml/hr; Site: left antecubital; eo2 18:47 Drug: Tylenol 1000 mg Route: PO; eo2 03/28 08:15 Drug: Zosyn (piperacillin-tazobactam) 2.25 grams Route: IVPB; Infused Over: 60 mins; vg1 Site: right wrist; 09:27 Follow up: IV Status: Completed infusion; IV Intake: 100ml vg1 Disposition Summary: 03/28/21 10:59 Hospitalization Ordered Hospitalization Status: Inpatient Admission jr8 Provider: Dion Pascual Condition: Stable(03/28/21 10:59) jr8 Problem: new(03/28/21 10:59) jr8 Symptoms: have improved(03/28/21 10:59) jr8 Bed/Room Type: Standard [facility] Location: [facility] ER HOLD(03/28/21 16:04) Room Assignment: ERHOLD-(03/28/21 16:04) bd Diagnosis - GI Bleed/ Gastrointestinal hemorrhage, unspecified(03/28/21 10:59) jr8 - Anemia, unspecified(03/28/21 10:59) jr8 - SARS-associated coronavirus as the cause of diseases classified elsewhere jr8 - Acute kidney failure, unspecified(03/28/21 10:59) jr8 Forms: - Medication Reconciliation Form jr8 - SBAR form jr8 Signatures: Dispatcher [employer] [facility] Gretel Comer Corey, MD MD cha Roszak, Josh, PA PA jr8 Attema, Iron, NURSE CHARGE RN-C NURSE CHARGE RN-Cla1 Jose Boswell MD MD ma2 Daina Broderick, RN RN vg1 Dion Pascual MD MD rn3 Josefian Carballo RN RN eo2 Brenna Stratton RN ss Corrections: (The following items were deleted from the chart) 02:25 03/27 17:26 Hemoglobin+H.LAB.BRZ ordered. EDMS EDMS 03/28 02:25 03/27 17:26 Hematocrit+H.LAB.BRZ ordered. EDNY EDNY 03/28 07:05 03/27 18:53 N/a ca2 drew 03/28 07:05 03/27 18:53 GI Bleed/ Gastrointestinal hemorrhage, unspecified ca2 drew 03/28 07:22 03/27 18:53 Coronavirus infection, unspecified ca2 drew 03/28 07:22 07:05 N/a drew drew 07:23 07:22 N/a drew drew 07:27 07:23 N/a drew drew 10:54 03/27 18:[address] 03/28 10:54 03/27 18:53 Higher level of care [facility]8 03/28 10:54 03/27 18:[address] [facility]8 03/28 10:54 03/27 18:[address] [facility] 03/28 10:54 03/27 18:[address] [facility] 03/28 10:54 07:05 GI Bleed/ Gastrointestinal hemorrhage, unspecified - LOWER drew jr8 10:54 07:23 Anemia, unspecified drew 8 10:54 07:23 Acute kidney failure, unspecified - ON CHRONIC drew 8 10:54 07:27 N/a drew jr8 10:54 07:27 Coronavirus infection, unspecified drew jr8 16:04 10:59 Telemetry/MedSurg (Inpatient) [facility] bd 16:04 10:59 jr8 bd
[2021-03-27 20:46] LABS: Anisocytosis 2+; Blood Morphology Comment NOTED (NOT SEEN); Platelet Estimate ADEQ; Poikilocytosis 2+; White Blood Cell Scan OK (OK)
[2021-03-28] MEDS ORDERED: NA CHLORIDE 0.9% 250 ML ONE ×2 (00:42→03:14)
[2021-03-28] MEDS ORDERED: NA CHLORIDE 0.9% 100 ML ONE (07:24)
[2021-03-28] MEDS ORDERED: PIPERACIL/TAZO 2.25 GM VIAL IV ONE (07:24)
--- NOTE | 2021-03-28 08:07 | RAD REPORT ---
EXAM DESCRIPTION: CT - Abdomen Pelvis Wo Contrast - 03/28/2021 7:40 am CLINICAL HISTORY: Abdominal pain COMPARISON: 2007 TECHNIQUE: Computed axial tomography of the abdomen and pelvis was obtained. IV and oral contrast we re not requested. All CT scans are performed using dose optimization technique as appropriate and may include automated exposure control or mA/KV adjustment according to patient size. FINDINGS: The evaluation of solid organs, vessels and bowel is limited secondary to the lack of con trast administration. Postsurgical changes involve stomach. Small to moderate hiatal hernia. The wall of stomach appears di ffusely thickened. Calcified mediastinal and hilar lymph nodes. Coronary arterial calcifications. Tiny right subpleural lung nodules. A 29 millimeter hepatic cyst. Spleen, pancreas, adrenals and right kidney grossly normal. 16 millimeter low to intermediate density mass extends off of the left kidney. 14 millimeter low-dens ity mass extends off the upper pole left kidney probably a cyst. Normal appendix. No evidence of diverticulitis. A small umbilical hernia 4.6 centimeter low-density mass within the uterus. This likely represents a fibroid. IMPRESSION: Diffusely thickened gastric wall probably indicating inflammation. 16 millimeter left renal mass is nonspecific. Most likely it is benign. Nonemergent renal ultrasound recommended.
[2021-03-28] MEDS ORDERED: NA CHLORIDE 0.9% 1,000 ML ONE (15:35)
--- NOTE | 2021-03-28 15:36 | P.HP ---
Certification for Inpatient Patient admitted to: Inpatient With expected LOS: >2 Midnights Practitioner: I am a practitioner with admitting privileges, knowledge of patient current condition, hospital course, and medical plan of care. Services: Services provided to patient in accordance with Admission requirements found in Title 42 Section 412.3 of the Code of Federal Regulations Patient History Date of Service: 03/28/21 Reason for admission: Anemia, GI bleed History of Present Illness: 80yo F, PMH: "GI tumor", GERD, HTN Presented to ED on 03/27 due to lightheadedness and feeling nauseated. Denies any emesis, denies chest pain. She reports 1 month of intermittent maroonish stool. She denies any past history of GI bleed. She denies use of any anticoagulation/antiplatelet medications. She denies any other recent illness, no fever/chills, no diarrhea. In the ED yesterday, she was noted to have a hemoglobin of 3.9. Initially patient was hypotensive and tachycardic. There were no other GI consultants front office director/available, patient's transfer was initiated to [facility] per patient's/family preference. Patient went underwent transfusion with 4 units PRBCs, hemoglobin increased to 11.4. Unfortunately there were no beds available and patient will be admitted to this hospital. ER provider was able to get a hold of GI, who will be available to see the patient in consult. Currently patient denies any nausea, denies any pain, has not had any episodes of emesis. Vitals have been within normal limits and stable. CT abdomen/pelvis: Diffusely thickened gastric wall probably indicating inflammation Patient also incidentally found to be Covid positive, denies any symptoms. Reports she has been vaccinated, and most recently had her booster 1 month ago. Allergies No Known Allergies Allergy (Unverified 03/28/21 16:36) - Past Medical/Surgical History -: GI tumor -: Hypertension -: GERD -: Excision of GI tumor -: Right knee surgery - Family History Family History: Reviewed- Non-Contributory - Social History Smoking Status: Never smoker Alcohol use: No Place of Residence: Home Review of Systems 10-point ROS is otherwise unremarkable Physical Examination - Physical Exam General: Alert, In no apparent distress, Oriented x3 HEENT: Sclerae nonicteric Neck: Supple, No LAD Respiratory: Clear to auscultation bilaterally Cardiovascular: No edema, Regular rate/rhythm Gastrointestinal: Soft and benign, Non-distended, Tenderness (Minimal in epigastrium) Musculoskeletal: No contractures, No erythema Neurological: Normal speech, Normal affect - Studies Laboratory Data (last 24 hrs) 03/28/21 09:22: Hgb 11.7 L D 03/28/21 03:00: Hgb Cancelled, Hct Cancelled 03/28/21 00:28: Hgb 7.4 L D 03/27/21 14:55: WBC 4.30, Hgb 3.9 L*, Hct 12.5 L*, Plt Count 290 Assessment and Plan - Advance Directives Does patient have a Living Will: Yes Does patient have a Durable POA for Healthcare: Yes Physician Review Additional Text: Problem list Upper GI bleed Gastritis/gastric ulcer Acute blood loss anemia GERA Hypertension h/o "GI tumor" GERD Nonspecific 16mm left renal mass incidentally found Positive for COVID-19 Vital stable, no hematemesis, no hematochezia Hemoglobin up to 11 from 3.9 after 4 units. Will recheck as this result is inappropriately higher than expected Dr. Martin consulted, okay with clear liquid diet, continue Protonix drip. Plan for EGD tomorrow early afternoon Patient updated with plan of care Incidentally found to be positive for COVID-19, continue to monitor, asymptomatic GERA, suspect prerenal secondary to patient's hypotension/anemia. Start gentle IV fluids, nephrology consulted Patient reports history of GI tumor, unable to give specifics, was many years ago Incidental finding 16mm left renal mass noted on CT. Recommend nonemergent renal ultrasound VTE: SCDs Code: Full Dispo: Anticipate DC home in 2-3 days Time Spent Managing Pts Care (In Minutes): 60
[2021-03-28 16:34] VITALS: BMI 26.0
[2021-03-28] MEDS ORDERED: ONDANSETRON 4 MG/2 ML VIAL IV PRN (16:36)
[2021-03-28] MEDS: NA CHLORIDE 0.9% 1,000 ML IV SCH (16:36)
[2021-03-28 20:36] LABS: Potassium 3.5 mmol/L (3.5-5.1)
[2021-03-28 20:37] LABS: Absolute Lymphocytes (CBC) 0.4 K/uL (0.7-4.9); Hematocrit 33.4 % (36.0-45.0); Lymphocytes % 6.1 % (15.3-44.8); MPV 7.2 fL (7.6-11.3); RBC Red Blood Cell Count 3.87 M/uL (3.86-4.86)
--- NOTE | 2021-03-28 22:44 | P.CNS ---
Date of Consult: 03/28/21 Reason for Consult: GERA/ CKD Requesting Physician: Dion Pascual Chief Complaint: Anemia, GI bleed History of Present Illness: 80 yo BF HTN, Anemia presented to the ER with several days of moderate, progressive malaise with associated weakness. Reports taking ibuprofen for pain. Denies any urinary difficulties. 80yo F, PMH: "GI tumor", GERD, HTN Presented to ED on 03/27 due to lightheadedness and feeling nauseated. Denies any emesis, denies chest pain. She reports 1 month of intermittent maroonish stool. She denies any past history of GI bleed. She denies use of any anticoagulation/antiplatelet medications. She denies any other recent illness, no fever/chills, no diarrhea. In the ED yesterday, she was noted to have a hemoglobin of 3.9. Initially patient was hypotensive and tachycardic. There were no other GI consultants application operations engineer/available, patient's transfer was initiated to [facility] per patient's/family preference. Patient went underwent transfusion with 4 units PRBCs, hemoglobin increased to 11.4. Unfortunately there were no beds available and patient will be admitted to this hospital. ER provider was able to get a hold of GI, who will be available to see the patient in consult. Currently patient denies any nausea, denies any pain, has not had any episodes of emesis. Vitals have been within normal limits and stable. CT abdomen/pelvis: Diffusely thickened gastric wall probably indicating inflammation Patient also incidentally found to be Covid positive, denies any symptoms. Reports she has been vaccinated, and most recently had her booster 1 month ago. 14:46 This 80 yrs old Black Female presents to ER via EMS with complaints of Lightheadedness. ma2 14:46 Onset: The symptoms/episode began/occurred gradually, 1 day(s) ago. Associated signs ma2 and symptoms: Pertinent negatives: ataxia, combativeness, diaphoresis, head injury, , seizure, tingling. Severity of symptoms: At their worst the symptoms were mild in the emergency department the symptoms are unchanged. The patient has experienced similar episodes in the past. Patient here with episode of near syncope, she has been lightheaded for few days, and was about to pass out today however went down and hit the floor while sitting, so now she has lower back pain, and right knee pain, she said that she did not hit her head and she has been awake all the time. No chest pain or actual syncope. Allergies No Known Allergies Allergy (Unverified 03/28/21 16:36) Home medications list reviewed: Yes Home Medications: Calcitrol [Rocaltrol*] 0.5 mcg PO DAILY cap 03/29/21 Pantoprazole [Protonix Tab] 40 mg PO BID #60 tab 03/29/21 - Past Medical/Surgical History -: GI tumor -: Hypertension -: GERD -: Excision of GI tumor -: Right knee surgery - Social History Alcohol use: No Place of Residence: Home Review of Systems 10-point ROS is otherwise unremarkable General: Weakness, Malaise Neurological: Weakness Physical Examination General: Alert, Cooperative, Mild distress HEENT: Atraumatic Neck: Supple Respiratory: Clear to auscultation bilaterally Cardiovascular: Regular rate/rhythm, Edema Gastrointestinal: Soft and benign, Non-distended Musculoskeletal: No clubbing, No contractures Integumentary: No rashes, No cyanosis Neurological: Normal speech Laboratory Data (last 24 hrs) 03/28/21 09:22: Hgb 11.7 L D 03/28/21 03:00: Hgb Cancelled, Hct Cancelled 03/28/21 00:28: Hgb 7.4 L D Imagings Data: EXAM DESCRIPTION: CT - Abdomen Pelvis Wo Contrast - 03/28/2021 7:40 am CLINICAL HISTORY: Abdominal pain COMPARISON: 2007 TECHNIQUE: Computed axial tomography of the abdomen and pelvis was obtained. IV and oral contrast were not requested. All CT scans are performed using dose optimization technique as appropriate and may include automated exposure control or mA/KV adjustment according to patient size. FINDINGS: The evaluation of solid organs, vessels and bowel is limited secondary to the lack of contrast administration. Postsurgical changes involve stomach. Small to moderate hiatal hernia. The wall of stomach appears diffusely thickened. Calcified mediastinal and hilar lymph nodes. Coronary arterial calcifications. Tiny right subpleural lung nodules. A 29 millimeter hepatic cyst. Spleen, pancreas, adrenals and right kidney grossly normal. 16 millimeter low to intermediate density mass extends off of the left kidney. 14 millimeter low-density mass extends off the upper pole left kidney probably a cyst. Normal appendix. No evidence of diverticulitis. A small umbilical hernia 4.6 centimeter low-density mass within the uterus. This likely represents a fibroid. IMPRESSION: Diffusely thickened gastric wall probably indicating inflammation. 16 millimeter left renal mass is nonspecific. Most likely it is benign. Nonemergent renal ultrasound recommended. EXAM DESCRIPTION: RADChest Single View03/27/2021 3:57 pm CLINICAL HISTORY: Congestion COMPARISON: 2008 FINDINGS: Calcified lung granulomas, calcified hilar and calcified mediastinal lymph nodes. Calcified pleural plaques are present. Lungs appear clear of acute infiltrate. Heart is normal size EXAM DESCRIPTION: CTSpine Lumbar Wo Con03/27/2021 3:56 pm CLINICAL HISTORY: Back injury with back pain status post fall COMPARISON: None TECHNIQUE: Computed axial tomography lumbar spine was obtained with coronal and sagittal reconstruction. All CT scans are performed using dose optimization technique as appropriate and may include automated exposure control or mA/KV adjustment according to patient size. FINDINGS: No fracture is seen. No dislocation is noted. No high-grade central/foraminal stenosis visualized. Images of the lower chest demonstrate calcified lymph nodes within posterior me diastinum. 1 centimeter chronic sclerosis right sacrum is benign IMPRESSION: A lumbar fracture is not visualized If patient continues have symptoms to suggest spinal canal pathology MRI would be recommended EXAM DESCRIPTION: CT - Head Brain Wo Cont - 03/27/2021 3:41 pm CLINICAL HISTORY: Syncope COMPARISON: None TECHNIQUE: Computed axial tomography of the head was obtained. IV contrast was not requested. All CT scans are performed using dose optimization technique as appropriate and may include automated exposure control or mA/KV adjustment according to patient size. The ventricles are normal in caliber. No extra-axial fluid collection is noted. A small bony/ calcific densities extend off of the medial aspect of the left temporal bone which may represent osteomas. Moderate sphenoid sinusitis IMPRESSION: No acute intracranial abnormality is seen. If patient's symptoms persist MRI of the brain would be recommended. EXAM DESCRIPTION: RAD - Knee Right 3 View - 03/27/2021 3:57 pm CLINICAL HISTORY: Right knee pain status post injury FINDINGS: The exam is somewhat limited as the patient could not extend her knee. Cortical irregularity involves the lateral tibial plateau. Most likely this is not significant as there does not appear to be a significant joint effusion. Bones are osteoporotic. No dislocation. If patient continues have symptoms to suggest an occult fracture, ligamentous or meniscal injury MRI would be recommended Conclusions/Impression: GERA likely due to hypovolemia and may be complicated by ibuprofen CKD III -No NSAIDs -Continue IVF with NS Hyponatremia -Continue IVF with NS Hypokalemia -Replete potassium prn Acidosis -Consider oral bicarb Hypocalcemia -Start Vitamin D Left renal mass likely benign -Consider renal ultrasound Hypotension -Continue IVF -IVF bolus as needed Moderate malnutrition -Encourage nutrition Anemia in chronic illness GI Bleed -Transfuse PRBC as ordered -Continue PPI gtt -Follow up with GI for possible EGD COVID-19 PNA Thank you kindly for the consultation. Critical Care: Yes (>30min)
[2021-03-29] MEDS: PANTOPRAZOLE INJ 80 MG in NA CHLORIDE 0.9% 250 ML IV SCH ×2 (00:45→13:00)
[2021-03-29] MEDS ORDERED: PANTOPRAZOLE 40 MG INJ ONE (00:54)
[2021-03-29] MEDS ORDERED: NA CHLORIDE 0.9% 250 ML ONE (00:55)
[2021-03-29 04:39] LABS: Absolute Lymphocytes (CBC) 0.7 K/uL (0.7-4.9); Hematocrit 33.7 % (36.0-45.0); Lymphocytes % 10.2 % (15.3-44.8); MPV 7.8 fL (7.6-11.3); RBC Red Blood Cell Count 3.88 M/uL (3.86-4.86)
[2021-03-29 04:41] LABS: Protime INR 0.96
[2021-03-29 05:33] LABS: Albumin 2.3 g/dL (3.4-5.0); Bilirubin Total 0.4 mg/dL (0.2-1.0); Phosphorus 3.1 mg/dL (2.5-4.9); Protein, Total 5.2 g/dL (6.4-8.2); Uric Acid 7.4 mg/dL (2.6-6.0)
[2021-03-29 05:35] LABS: Magnesium 1.9 mg/dL (1.8-2.4); Potassium 4.1 mmol/L (3.5-5.1)
[2021-03-29] MEDS: NA CHLORIDE 0.9% 1,000 ML IV SCH (05:56)
[2021-03-29] MEDS ORDERED: CALCITROL 0.25 MCG CAP PO SCH (09:00)
[2021-03-29] MEDS ORDERED: NA CHLORIDE 0.9% 1,000 ML ONE (09:06)
[2021-03-29] MEDS ORDERED: LIDOCAINE 1% MPF 5 ML VIAL ONE (14:23)
[2021-03-29] MEDS ORDERED: propofoL 200 MG/20 ML VIAL IV ONE (14:23)
[2021-03-29 15:19] VITALS: O2SAT 96
[2021-03-29 17:11] VITALS: BP 133/63; TEMP 97.6
--- NOTE | 2021-03-29 19:13 | P.DS ---
Admission Date: 03/28/21 Discharge Date: 03/29/21 Disposition: ROUTINE DISCHARGE Discharge Condition: FAIR Reason for Admission: Anemia, GI bleed Brief History of Present Illness: Presented to ED on 03/27 due to lightheadedness and feeling nauseated. Denies any emesis, denies chest pain. She reports 1 month of intermittent maroonish stool. She denies use of any anticoagulation/antiplatelet medications. She was noted to have a hemoglobin of 3.9. Initially patient was hypotensive and tachycardic. Patient was transfused 4 units PRBCs, hemoglobin increased to 11.4 and blood pressure stabilized. CT abdomen/pelvis: Diffusely thickened gastric wall probably indicating inflammation Patient also incidentally found to be Covid positive, denies any symptoms. Reports she has been vaccinated, and most recently had her booster 1 month ago. Patient hospitalized for further management. Hospital Course: Patient admitted to the medical floor. Seen by GI-Dr. Cristina who performed EGD. Patient noted to have angiodysplasia-which was treated. GI recommends Protonix twice daily and follow-up with him within 1 month for repeat EGD and a colonoscopy. Patient also found to have left renal mass incidentally. She will need to follow-up as an outpatient with a renal ultrasound. This information has been communicated to the patient and family. Patient currently asymptomatic and deemed clinically stable for discharge. Vital Signs/Physical Exam: Temp Pulse Resp BP Pulse Ox 97.6 F 86 18 133/63 98 03/29/21 16:00 03/29/21 16:00 03/29/21 16:00 03/29/21 16:00 03/29/21 16:00 General: Alert, In no apparent distress, Oriented x3 HEENT: Mucous membr. moist/pink Neck: JVD not distended Respiratory: Normal air movement, Diminished Cardiovascular: Regular rate/rhythm, Normal S1 S2 Gastrointestinal: Soft and benign, Non-distended Musculoskeletal: No swelling Integumentary: No rashes, No cyanosis Neurological: Normal strength at 5/5 x4 extr Laboratory Data at Discharge: WBC 7.30 K/uL (4.3-10.9) 03/29/21 04:20 Hgb 11.1 g/dL (12.0-15.0) L 03/29/21 04:20 Hct 33.7 % (36.0-45.0) L 03/29/21 04:20 Plt Count 176 K/uL (152-406) 03/29/21 04:20 PT 11.0 SECONDS (9.5-12.5) 03/29/21 04:20 INR 0.96 03/29/21 04:20 APTT 23.9 SECONDS (24.3-36.9) L 03/29/21 04:20 Sodium 139 mmol/L (136-145) 03/29/21 04:20 Potassium 4.1 mmol/L (3.5-5.1) 03/29/21 04:20 BUN 20 mg/dL (7-18) H 03/29/21 04:20 Creatinine 1.59 mg/dL (0.55-1.3) H 03/29/21 04:20 Glucose 80 mg/dL (74-106) 03/29/21 04:20 Uric Acid 7.4 mg/dL (2.6-6.0) H 03/29/21 04:20 Phosphorus 3.1 mg/dL (2.5-4.9) 03/29/21 04:20 Magnesium 1.9 mg/dL (1.8-2.4) 03/29/21 04:20 Total Bilirubin 0.4 mg/dL (0.2-1.0) 03/29/21 04:20 AST 39 U/L (15-37) H 03/29/21 04:20 ALT 20 U/L (12-78) 03/29/21 04:20 Alkaline Phosphatase 52 U/L (45-117) 03/29/21 04:20 Lipase 202 U/L (73-393) 03/27/21 14:55 Home Medications: Calcitrol [Rocaltrol*] 0.5 mcg PO DAILY cap 03/29/21 Pantoprazole [Protonix Tab] 40 mg PO BID #60 tab 03/29/21 New Medications: Pantoprazole [Protonix Tab] 40 mg PO BID #60 tab Physician Discharge Instructions: You will need a repeat EGD within 1 month. You will need to follow-up with Dr. Cristina for the repeat EGD. Full liquid diet for the next couple of days. Diet: liquid Activity: Ad cristina Followup: NONE,NONE [Primary Care Provider] - 1 Week Prem Cristina MD [ACTIVE - CAN ADMIT] - (Within 1 month.) Time spent managing pt's care (in minutes): 35
--- NOTE | 2021-03-29 19:54 | P.PN ---
Date of Service: 03/29/21 Vital Signs Temp Pulse Resp BP Pulse Ox 97.6 F 86 18 133/63 98 03/29/21 16:00 03/29/21 16:00 03/29/21 16:00 03/29/21 16:00 03/29/21 16:00 Lab Results (last 24 hrs) 03/27/21 16:06: ABO/Rh O POSITIVE, Solid Phase Ab Screen Negative, Crossmatch See Detail Assessment/ Plan: Nephrology No dyspnea No chest pain Feeling better No acute events overnight Vitals, medications, blood work and imaging reviewed in the chart General: Alert, Cooperative, Mild distress HEENT: Atraumatic Neck: Supple Respiratory: Clear to auscultation bilaterally Cardiovascular: Regular rate/rhythm, Edema Gastrointestinal: Soft and benign, Non-distended Musculoskeletal: No clubbing, No contractures Integumentary: No rashes, No cyanosis Neurological: Normal speech Laboratory Data (last 24 hrs) 03/28/21 09:22: Hgb 11.7 L D 03/28/21 03:00: Hgb Cancelled, Hct Cancelled 03/28/21 00:28: Hgb 7.4 L D Imagings Data: EXAM DESCRIPTION: CT - Abdomen Pelvis Wo Contrast - 03/28/2021 7:40 am CLINICAL HISTORY: Abdominal pain COMPARISON: 2007 TECHNIQUE: Computed axial tomography of the abdomen and pelvis was obtained. IV and oral contrast were not requested. All CT scans are performed using dose optimization technique as appropriate and may include automated exposure control or mA/KV adjustment according to patient size. FINDINGS: The evaluation of solid organs, vessels and bowel is limited secondary to the lack of contrast administration. Postsurgical changes involve stomach. Small to moderate hiatal hernia. The wall of stomach appears diffusely thickened. Calcified mediastinal and hilar lymph nodes. Coronary arterial calcifications. Tiny right subpleural lung nodules. A 29 millimeter hepatic cyst. Spleen, pancreas, adrenals and right kidney grossly normal. 16 millimeter low to intermediate density mass extends off of the left kidney. 14 millimeter low-density mass extends off the upper pole left kidney probably a cyst. Normal appendix. No evidence of diverticulitis. A small umbilical hernia 4.6 centimeter low-density mass within the uterus. This likely represents a fibroid. IMPRESSION: Diffusely thickened gastric wall probably indicating inflammation. 16 millimeter left renal mass is nonspecific. Most likely it is benign. Nonemergent renal ultrasound recommended. EXAM DESCRIPTION: RADChest Single View03/27/2021 3:57 pm CLINICAL HISTORY: Congestion COMPARISON: 2008 FINDINGS: Calcified lung granulomas, calcified hilar and calcified mediastinal lymph nodes. Calcified pleural plaques are present. Lungs appear clear of acute infiltrate. Heart is normal size EXAM DESCRIPTION: CTSpine Lumbar Wo Con03/27/2021 3:56 pm CLINICAL HISTORY: Back injury with back pain status post fall COMPARISON: None TECHNIQUE: Computed axial tomography lumbar spine was obtained with coronal and sagittal reconstruction. All CT scans are performed using dose optimization technique as appropriate and may include automated exposure control or mA/KV adjustment according to patient size. FINDINGS: No fracture is seen. No dislocation is noted. No high-grade central/foraminal stenosis visualized. Images of the lower chest demonstrate calcified lymph nodes within posterior mediastinum. 1 centimeter chronic sclerosis right sacrum is benign IMPRESSION: A lumbar fracture is not visualized If patient continues have symptoms to suggest spinal canal pathology MRI would be recommended EXAM DESCRIPTION: CT - Head Brain Wo Cont - 03/27/2021 3:41 pm CLINICAL HISTORY: Syncope COMPARISON: None TECHNIQUE: Computed axial tomography of the head was obtained. IV contrast was not requested. All CT scans are performed using dose optimization technique as appropriate and may include automated exposure control or mA/KV adjustment according to patient size. The ventricles are normal in caliber. No extra-axial fluid collection is noted. A small bony/ calcific densities extend off of the medial aspect of the left temporal bone which may represent osteomas. Moderate sphenoid sinusitis IMPRESSION: No acute intracranial abnormality is seen. If patient's symptoms persist MRI of the brain would be recommended. EXAM DESCRIPTION: RAD - Knee Right 3 View - 03/27/2021 3:57 pm CLINICAL HISTORY: Right knee pain status post injury FINDINGS: The exam is somewhat limited as the patient could not extend her knee. Cortical irregularity involves the lateral tibial plateau. Most likely this is not significant as there does not appear to be a significant joint effusion. Bones are osteoporotic. No dislocation. If patient continues have symptoms to suggest an occult fracture, ligamentous or meniscal injury MRI would be recommended Conclusions/Impression: GERA likely due to hypovolemia and may be complicated by ibuprofen CKD III -No NSAIDs -Continue IVF with NS Hyponatremia -Continue IVF with NS Hypokalemia -Replete potassium prn Acidosis -Consider oral bicarb Hypocalcemia -Continue Vitamin D Left renal mass likely benign -Consider renal ultrasound Hypotension -Continue IVF -IVF bolus as needed Moderate malnutrition -Encourage nutrition Anemia in chronic illness GI Bleed -Transfuse PRBC prn -Continue PPI gtt -Follow up with GI COVID-19 PNA
--- NOTE | 2021-03-30 01:17 | OP ---
Surgeon: Prem Cristina MD Procedure Performed: Esophagogastroduodenoscopy. Indication For Procedure: Suspected upper GI bleed, severe anemia. Plan For Anesthesia: Monitored anesthesia care. Complexity: High due to patient's comorbidities being COVID positive as well as history of GIST. Technique: After obtaining informed consent from the patient, explaining risks and complications whi ch include, but are not limited to bleeding, infection, perforation, and anesthesia complication, the patient was placed in left lateral position and sedation was given. From then on, the scope was adv anced through the mouth and carefully guided up until the second portion of the duodenum. After comp letion of the examination, scope and equipment were withdrawn and procedure terminated in a safe [facility] er. Findings: Esophagus: No gross lesion seen in the entire esophagus. Stomach: Diffuse edematous mucosa seen in the stomach, however the patient appeared to be not able t o hold air in the stomach that well, so detailed examination of postsurgical anatomy could not be obt ained. There was evidence of active bleeding though in the antrum. After washing, it appeared that there were several small AVMs with mild oozing in the gastric antrum. These were ablated by APC. Duodenum: There was a small AVM that was oozing in the duodenal bulb. This was ablated with APC as well. The second portion of the duodenum appeared normal. Complications: None. Tolerance To Anesthesia: Excellent. 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 Plan: Continue current management, restart on diet. Oral PPI b.i.d. We will need repeat EGD in 1 m [facility] for staged ablation. Also should undergo outpatient colonoscopy. US/MODL Voice ID: [id number] Report ID: [id number]
== END 2021-03-29 18:13 | disposition home or self-care (01) | DRG 377 ==
LOC: ER 14:29 → ERHOLD 03-28 15:14
PROVIDERS: ADMIT Hospitalist; ATTEND Internal Medicine
PROC: 30233N1 Transfusion of Nonautologous Red Blood Cells into Peripheral Vein, Percutaneous Approach (ICD-10-PCS; 2021-03-27)
PROC: 30233P1 Transfusion of Nonautologous Frozen Red Cells into Peripheral Vein, Percutaneous Approach (ICD-10-PCS; 2021-03-28)
PROC: 0W3P8ZZ Control Bleeding in Gastrointestinal Tract, Via Natural or Artificial Opening Endoscopic (ICD-10-PCS; principal; 2021-03-29 14:30)
DX: K31.811 Angiodysplasia of stomach and duodenum with bleeding (principal); U07.1 COVID-19; J12.82 Pneumonia due to coronavirus disease 2019; N17.9 Acute kidney failure, unspecified; D62 Acute posthemorrhagic anemia; E87.1 Hypo-osmolality and hyponatremia; E87.2 Acidosis; E44.0 Moderate protein-calorie malnutrition; K25.4 Chronic or unspecified gastric ulcer with hemorrhage; K21.9 Gastro-esophageal reflux disease without esophagitis; D64.9 Anemia, unspecified; N28.9 Disorder of kidney and ureter, unspecified; I12.9 Hypertensive chronic kidney disease with stage 1 through stage 4 chronic kidney disease, or unspecified chronic kidney disease; N18.30 Chronic kidney disease, stage 3 unspecified; E87.6 Hypokalemia; D63.8 Anemia in other chronic diseases classified elsewhere; E83.51 Hypocalcemia; Z68.24 Body mass index [BMI] 24.0-24.9, adult; Z79.899 Other long term (current) drug therapy
CPT/HCPCS: 36415; 70450; 71045; 72131; 74176; 80048; 80053; 80076; 81001; 82550; 82553; 83690; 83735; 84100; 84484; 84550; 85018; 85025; 85610; 85730; 86850; 86900; 86901; 93005; 96365; 96375; 99284; C9113; J2543; J2704; J7030; J7050; P9016; U0003